=== PATIENT | male | born 1955 | race African-American/Black ===

== ENCOUNTER 2018-09-17 07:03 | Inpatient (IN) | payer MEDICAID ==
[~2018-09-17] VITALS: Ht 188 cm; Wt 137.9 kg
[2018-09-17] MEDS ORDERED: EPINEPHRINE 1:1000 1 MG/ML AMP ONE (08:26)
[2018-09-17] MEDS ORDERED: BUPIVACAINE/EPINEPH/PF 0.25%/0.0005 10ML ONE (08:26)
[2018-09-17] MEDS ORDERED: BACITRACIN 50,000 UNITS/VIAL ONE ×2 (08:26→12:39)
[2018-09-17] MEDS ORDERED: NORMAL SALINE 0.9% 10 ML SYR ONE (08:26)
[2018-09-17] MEDS ORDERED: METHYLENE BLUE 50 MG/10 ML AMP IV ONE (08:26)
[2018-09-17] MEDS ORDERED: MORPHINE SULFATE/PF 1MG/ML 10ML AMP ONE (08:30)
[2018-09-17] MEDS ORDERED: GENTAMICIN SULF 40MG/ML 2ML VIAL ONE (08:31)
[2018-09-17 08:51] LABS: BASOPHILS % 1.1 % (0.0-2.0); EOSINOPHILS % 3.4 % (0.0-5.0); HEMATOCRIT. 45.7 % (42.0-52.0); HEMOGLOBIN. 15.3 g/dL (14.0-18.0); LYMPHOCYTES % 32.9 % (20.0-50.0); MEAN CORPUSCULAR HEMOGLOBIN 26.5 pg (28.0-32.0); MEAN CORPUSCULAR VOLUME 79.2 fL (80.0-94.0); MEAN PLATELET VOLUME 8.1 fl (7.4-10.4); NEUTROPHILS % 55.6 % (40.0-76.0); PLATELET 271 x1000/uL (130-400); RED BLOOD CELL COUNT 5.77 mill/uL (4.7-6.1); RED CELL DISTRIBUTION WIDTH 14.1 % (11.6-14.6)
[2018-09-17 08:53] LABS: CHLORIDE 105 mEq/L (98-107)
[2018-09-17 08:56] LABS: PARTIAL THROMBOPLASTIN TIME 28.1 sec (23.4-31.0); PROTHROMBIN TIME 10.3 sec (9.1-11.1)
[2018-09-17 08:59] LABS: CLARITY URINE CLEAR (CLEAR); COLOR URINE YELLOW (YELLOW); KETONES URINE NEGATIVE (NEGATIVE); LEUKOCYTE ESTERASE URINE NEGATIVE (NEGATIVE); NITRITE URINE NEGATIVE (NEGATIVE); OCCULT BLOOD URINE NEGATIVE (NEGATIVE); PROTEIN URINE NEGATIVE (NEGATIVE); SPECIFIC GRAVITY URINE 1.011 (1.005-1.030); UROBILINOGEN URINE 0.2 E.U./dL (0.2-1.0)
[2018-09-17] MEDS ORDERED: BUPIVACAINE HCL/PF 0.5% (5MG/ML) 10ML ONE ×2 (09:17→09:18)
[2018-09-17] MEDS ORDERED: FENTANYL CITRATE/PF 50MCG/ML 2ML VIAL ONE ×3 (09:27→12:04)
[2018-09-17] MEDS ORDERED: PROPOFOL 200MG/20ML VIAL IV ONE (09:27)
[2018-09-17] MEDS ORDERED: MIDAZOLAM HCL 2 MG/2 ML VIAL ONE (09:33)
[2018-09-17] MEDS ORDERED: ONDANSETRON HCL 4MG/2ML INJ IV PRN ×2 (09:45→13:30)
[2018-09-17] MEDS ORDERED: MAGNESIUM HYDROXIDE 400MG/5ML 30ML UDC PO PRN (09:45)
[2018-09-17] MEDS ORDERED: ACETAMINOPHEN 325MG TABLET PO PRN (09:45)
[2018-09-17] MEDS ORDERED: SIMV20TA6 PO (10:09)
[2018-09-17] MEDS ORDERED: AMLO10TA80 PO (10:09)
[2018-09-17] MEDS ORDERED: POTA99TA4 PO (10:09)
[2018-09-17] MEDS ORDERED: FURO-151 PO (10:09)
[2018-09-17] MEDS ORDERED: ASPI-1159 PO (10:09)
[2018-09-17] MEDS ORDERED: LIDOCAINE HCL/PF 1% 10 MG/ML 5ML VIAL ONE (10:45)
[2018-09-17] MEDS ORDERED: CEFAZOLIN SODIUM 1000MG/VIAL ONE (10:45)
[2018-09-17] MEDS ORDERED: DEXAMETHASONE 4MG/ML 1ML VIAL ONE (10:46)
[2018-09-17] MEDS ORDERED: VANCOMYCIN HCL 500 MG/VIAL ONE ×2 (11:08→11:37)
[2018-09-17] MEDS ORDERED: TRANEXAMIC ACID 1,000 MG in SODIUM CHLORIDE 0.9% 100 ML IV NR (11:30)
[2018-09-17] MEDS ORDERED: SODIUM CHLORIDE 0.9% 1,000 ML IV ONE (13:20)
[2018-09-17] MEDS ORDERED: HYDROMORPHONE HCL/PF 2MG/ML CPJ IV PRN (13:30)
[2018-09-17] MEDS ORDERED: MEPERIDINE HCL/PF 25MG/ML CPJ IV PRN (13:30)
[2018-09-17] MEDS ORDERED: DIPHENHYDRAMINE 25MG CAPSULE PO PRN (14:15)
[2018-09-17 16:00] VITALS: BP 166/95
[2018-09-17 17:18] VITALS: BP 166/95
[2018-09-17] MEDS: CELECOXIB 200MG CAPSULE PO SCH (17:19)
[2018-09-17] MEDS: DOCUSATE SODIUM 100MG CAPSULE PO SCH (17:19)
[2018-09-17] MEDS: FERROUS SULFATE 325MG TABLET PO SCH (17:43)
[2018-09-17] MEDS: CEFAZOLIN 2,000 MG in DEXT 5% WATER 100 ML IV SCH (18:44)
[2018-09-17 20:00] VITALS: BP 153/96
[2018-09-17] MEDS ORDERED: ZOLPIDEM TARTRATE 5MG TABLET PO PRN (21:00)
[2018-09-18] VITALS: BP 154/94
[2018-09-18] MEDS: CEFAZOLIN 2,000 MG in DEXT 5% WATER 100 ML IV SCH (02:30)
[2018-09-18 04:00] VITALS: BP 128/71
[2018-09-18 06:43] LABS: BASOPHILS % 0.2 % (0.0-2.0); HEMATOCRIT. 38.7 % (42.0-52.0); LYMPHOCYTES % 14.8 % (20.0-50.0); MEAN CORPUSCULAR HEMOGLOBIN 26.5 pg (28.0-32.0); MEAN CORPUSCULAR VOLUME 79.3 fL (80.0-94.0); MEAN PLATELET VOLUME 8.4 fl (7.4-10.4); MONOCYTES % 8.4 % (2.0-8.0); NEUTROPHILS % 76.6 % (40.0-76.0); PLATELET 244 x1000/uL (130-400); RED BLOOD CELL COUNT 4.88 mill/uL (4.7-6.1); RED CELL DISTRIBUTION WIDTH 14.1 % (11.6-14.6)
[2018-09-18 07:23] LABS: CHLORIDE 102 mEq/L (98-107)
[2018-09-18 08:00] VITALS: BP 155/86
[2018-09-18] MEDS: DOCUSATE SODIUM 100MG CAPSULE PO SCH ×2 (08:18→17:57)
[2018-09-18] MEDS: FERROUS SULFATE 325MG TABLET PO SCH ×3 (08:19→17:57)
[2018-09-18] MEDS: CELECOXIB 200MG CAPSULE PO SCH ×2 (08:19→17:57)
[2018-09-18] MEDS: ENOXAPARIN 30MG/0.3ML SYR SUBCUT SCH ×2 (08:20→22:05)
[2018-09-18] MEDS: HYDROCODONE/ACETAMINOPHEN 10/325MG TABLET PO PRN ×2 (10:05→16:25)
[2018-09-18] MEDS: AMLODIPINE 10MG TABLET PO SCH (11:50)
[2018-09-18 12:00] VITALS: BP 135/70
[2018-09-18 16:00] VITALS: BP 123/87
[2018-09-18 20:00] VITALS: BP 140/97
[2018-09-19] VITALS: BP 133/80
[2018-09-19] MEDS: HYDROCODONE/ACETAMINOPHEN 10/325MG TABLET PO PRN ×2 (01:11→11:29)
[2018-09-19 04:00] VITALS: BP 135/96
[2018-09-19 08:00] VITALS: BP 143/96
[2018-09-19] MEDS: DOCUSATE SODIUM 100MG CAPSULE PO SCH (09:47)
[2018-09-19] MEDS: FERROUS SULFATE 325MG TABLET PO SCH (09:47)
[2018-09-19] MEDS: AMLODIPINE 10MG TABLET PO SCH (09:53)
[2018-09-19] MEDS: CELECOXIB 200MG CAPSULE PO SCH (09:53)
[2018-09-19] MEDS: ENOXAPARIN 30MG/0.3ML SYR SUBCUT SCH (09:54)
[2018-09-19 12:00] VITALS: BP 136/75
[2018-09-19 15:58] VITALS: BP 132/76
[2018-09-19 16:00] VITALS: BP 125/75
== END 2018-09-19 16:40 | disposition home health service (06) | DRG 302 ==
LOC: OR 07:03 → 6EST 07:04
PROVIDERS: ADMIT Internal Medicine; ATTEND Internal Medicine
PROC: 0SBD0ZZ Excision of Left Knee Joint, Open Approach (ICD-10-PCS; 2018-09-17)
PROC: 0SRD0J9 Replacement of Left Knee Joint with Synthetic Substitute, Cemented, Open Approach (ICD-10-PCS; principal; 2018-09-17 11:30)
DX: M17.0 Bilateral primary osteoarthritis of knee (principal); R71.0 Precipitous drop in hematocrit; E66.9 Obesity, unspecified; E78.5 Hyperlipidemia, unspecified; M21.862 Other specified acquired deformities of left lower leg; I10 Essential (primary) hypertension; G57.10 Meralgia paresthetica, unspecified lower limb; M65.9 Synovitis and tenosynovitis, unspecified; Z85.46 Personal history of malignant neoplasm of prostate; Z92.3 Personal history of irradiation; Z68.39 Body mass index [BMI] 39.0-39.9, adult
CPT/HCPCS: 36415; 71045; 73560; 80048; 86850; 86900; 88304; 88311; 97110; 97116; 97162; A4216; C1713; C1776; J0171; J0690; J1100; J1580; J1650; J2250; J2274; J2704; J3010; J3370; J3490; J7040; J7050; J7060; J7120; L1830; Q0163; Q9968

== ENCOUNTER 2019-11-25 05:18 | Inpatient (IN) | payer MEDICAID ==
[~2019-11-25] VITALS: Ht 188 cm; Wt 133.4 kg
[~2019-11-25 05:18] MED LIST: AMLO10TA80 PO; POTA99TA4 PO; SIMV-43 PO
[2019-11-25] MEDS: INSULIN LISPRO 100 UNITS/ML SUBCUT SCH (06:20)
[2019-11-25] MEDS: BLOOD SUGAR DIAGNOSTIC STRIP TEST SCH (06:20)
[2019-11-25 06:48] LABS: CLARITY URINE CLEAR (CLEAR); COLOR URINE YELLOW (YELLOW); KETONES URINE NEGATIVE (NEGATIVE); LEUKOCYTE ESTERASE URINE NEGATIVE (NEGATIVE); NITRITE URINE NEGATIVE (NEGATIVE); OCCULT BLOOD URINE NEGATIVE (NEGATIVE); PROTEIN URINE 1+ (NEGATIVE)
[2019-11-25] MEDS ORDERED: BUPIVACAINE HCL/EPINEPHRINE/PF 0.5%/0.0005 10ML ONE (07:16)
[2019-11-25] MEDS ORDERED: MORPHINE SULFATE/PF 1MG/ML 10ML AMP ONE (07:16)
[2019-11-25] MEDS ORDERED: METHYLENE BLUE 50 MG/10 ML AMP IV ONE (07:16)
[2019-11-25] MEDS ORDERED: GENTAMICIN SULF 40MG/ML 2ML VIAL ONE (07:16)
[2019-11-25] MEDS ORDERED: VANCOMYCIN HCL 1 GM/VIAL ONE (07:17)
[2019-11-25] MEDS ORDERED: EPINEPHRINE 1:1000 1 MG/ML AMP ONE (07:17)
[2019-11-25] MEDS ORDERED: BACITRACIN 15GM TUBE TOP ONE (07:17)
[2019-11-25] MEDS ORDERED: SKIN ADHESIVE 0.7 GM EA TOP ONE ×2 (07:17→08:16)
[2019-11-25] MEDS ORDERED: NORMAL SALINE 0.9% 10 ML SYR ONE (07:17)
[2019-11-25] MEDS ORDERED: BACITRACIN 50,000 UNITS/VIAL ONE (07:17)
[2019-11-25] MEDS ORDERED: MIDAZOLAM HCL 2 MG/2 ML VIAL ONE (07:19)
[2019-11-25] MEDS ORDERED: PROPOFOL 200MG/20ML VIAL IV ONE (07:19)
[2019-11-25] MEDS ORDERED: FENTANYL CITRATE/PF 50MCG/ML 2ML VIAL ONE (07:19)
[2019-11-25] MEDS ORDERED: PROPOFOL 10MG/ML 100ML 0 ML IV ONE (07:24)
[2019-11-25] MEDS ORDERED: ROPIVACAINE HCL 10MG/ML 20 ML VIAL EPI ONE (07:24)
[2019-11-25] MEDS ORDERED: BUPIVACAINE HCL/DEXTROSE/PF 0.75% 2ML AMP INJ ONE (07:24)
[2019-11-25] MEDS ORDERED: HYDROCODONE/ACETAMINOPHEN 10/325MG TABLET PO PRN (07:45)
[2019-11-25] MEDS ORDERED: TRANEXAMIC ACID 1,000 MG/10 ML IV ONE (07:45)
[2019-11-25] MEDS ORDERED: MAGNESIUM HYDROXIDE 400MG/5ML 30ML UDC PO PRN (07:45)
[2019-11-25] MEDS ORDERED: ONDANSETRON HCL 4MG/2ML INJ IV PRN ×2 (07:45→12:45)
[2019-11-25] MEDS ORDERED: ROCURONIUM BROMIDE 10MG/ML VIAL 5ML IV ONE (07:51)
[2019-11-25] MEDS ORDERED: TRANEXAMIC ACID 1,000 MG in SODIUM CHLORIDE 0.9% 100 ML IV NR (08:00)
[2019-11-25] MEDS ORDERED: SODIUM CHLORIDE 0.9% 10ML VIAL ONE (08:15)
[2019-11-25] MEDS ORDERED: CEFAZOLIN SODIUM 1000MG/VIAL ONE (08:15)
[2019-11-25] MEDS ORDERED: LIDOCAINE HCL/PF 1% 10 MG/ML 5ML VIAL ONE (08:15)
[2019-11-25] MEDS ORDERED: LACTATED RINGERS 1,000 ML IV SCH (08:30)
[2019-11-25] MEDS ORDERED: CHOL200059 PO (08:42)
[2019-11-25] MEDS ORDERED: ATOR20TA65 PO (08:42)
[2019-11-25] MEDS ORDERED: LOSA100T32 PO (08:42)
[2019-11-25] MEDS ORDERED: GLIP10TA10 PO (08:42)
[2019-11-25] MEDS ORDERED: ASPI-1160 PO (08:42)
[2019-11-25] MEDS: DOCUSATE SODIUM 100MG CAPSULE PO SCH ×2 (09:00→17:57)
[2019-11-25] MEDS ORDERED: KETOROLAC 30MG/ML VIAL ONE (11:51)
[2019-11-25] MEDS ORDERED: ONDANSETRON HCL 4MG/2ML INJ ONE (11:52)
[2019-11-25] MEDS ORDERED: HYDROMORPHONE HCL/PF 2MG/ML CPJ IV PRN (12:45)
[2019-11-25] MEDS ORDERED: FENTANYL CITRATE/PF 50MCG/ML 2ML VIAL IV PRN (12:45)
[2019-11-25] MEDS ORDERED: MEPERIDINE HCL/PF 25MG/ML CPJ IV PRN (12:45)
[2019-11-25] MEDS ORDERED: DIPHENHYDRAMINE INJ IV PRN (14:30)
[2019-11-25] MEDS ORDERED: NALOXONE INJ IV PRN (14:30)
[2019-11-25] MEDS ORDERED: ONDANSETRON INJ IV PRN (14:30)
[2019-11-25] MEDS ORDERED: HYDROMORPHONE PCA 10MG/50ML IV PRN (14:30)
[2019-11-25] MEDS ORDERED: DIPHENHYDRAMINE 50MG/ML VIAL IM PRN (16:45)
[2019-11-25 17:00] VITALS: BP 126/76
[2019-11-25] MEDS ORDERED: ACETAMINOPHEN 325MG TABLET PO PRN (17:00)
[2019-11-25] MEDS: LOSARTAN POTASSIUM 100 MG TABLET PO SCH (17:57)
[2019-11-25] MEDS: AMLODIPINE 10MG TABLET PO SCH (17:58)
[2019-11-25] MEDS: CELECOXIB 200MG CAPSULE PO SCH ×3 (17:58→20:01)
[2019-11-25] MEDS: GLIPIZIDE 10MG TABLET PO SCH (18:11)
[2019-11-25 19:57] VITALS: BP 111/72
[2019-11-25] MEDS: ATORVASTATIN CALCIUM 20MG TABLET PO SCH (20:01)
[2019-11-25] MEDS: CEFAZOLIN 2,000 MG in DEXT 5% WATER 100 ML IV SCH (20:02)
[2019-11-25] MEDS ORDERED: ZOLPIDEM TARTRATE 5MG TABLET PO PRN (21:00)
[2019-11-25] MEDS ORDERED: DEXTROSE 50% WATER 50ML SYRINGE IV PRN (23:30)
[2019-11-26] VITALS: BP 107/51
[2019-11-26 04:00] VITALS: BP 122/68
[2019-11-26] MEDS: CEFAZOLIN 2,000 MG in DEXT 5% WATER 100 ML IV SCH (04:57)
[2019-11-26 06:34] LABS: BASOPHILS % 0.2 % (0.0-2.0); EOSINOPHILS % 1.5 % (0.0-5.0); HEMATOCRIT. 36.1 % (42.0-52.0); HEMOGLOBIN. 11.9 g/dL (14.0-18.0); LYMPHOCYTES % 24.8 % (20.0-50.0); MEAN CORPUSCULAR HEMOGLOBIN 26.4 pg (28.0-32.0); MEAN PLATELET VOLUME 8.3 fl (7.4-10.4); MONOCYTES % 12.2 % (2.0-8.0); NEUTROPHILS % 61.3 % (40.0-76.0); PLATELET 237 x1000/uL (130-400); RED BLOOD CELL COUNT 4.51 mill/uL (4.7-6.1); RED CELL DISTRIBUTION WIDTH 14.1 % (11.6-14.6)
[2019-11-26] MEDS: GLIPIZIDE 10MG TABLET PO SCH (06:37)
[2019-11-26] MEDS: BLOOD SUGAR DIAGNOSTIC STRIP TEST SCH ×4 (07:36→21:45)
[2019-11-26] MEDS: INSULIN LISPRO 100 UNITS/ML SUBCUT SCH ×4 (07:50→21:00)
[2019-11-26 08:02] VITALS: BP 147/87
[2019-11-26 08:03] LABS: CHLORIDE 107 mEq/L (98-107)
[2019-11-26] MEDS: CELECOXIB 200MG CAPSULE PO SCH ×2 (08:51→20:37)
[2019-11-26] MEDS: AMLODIPINE 10MG TABLET PO SCH (08:51)
[2019-11-26] MEDS: DOCUSATE SODIUM 100MG CAPSULE PO SCH ×2 (09:00→17:11)
[2019-11-26] MEDS ORDERED: ENOXAPARIN 30MG/0.3ML SYR SUBCUT SCH (09:00)
[2019-11-26] MEDS ORDERED: INFLUENZA VIRUS VACCINE(AFLURIA) 0.5ML SYR IM ONE (09:00)
[2019-11-26 12:00] VITALS: BP 153/81
[2019-11-26 16:00] VITALS: BP_SYST 134; BP_SYST 153; BP_DIAS 79; BP_DIAS 81
[2019-11-26] MEDS: LOSARTAN POTASSIUM 100 MG TABLET PO SCH (17:11)
[2019-11-26 20:00] VITALS: BP 139/69
[2019-11-26] MEDS: ATORVASTATIN CALCIUM 20MG TABLET PO SCH (20:37)
[2019-11-26] MEDS: ENOXAPARIN 40MG/0.4ML SYR SUBCUT SCH (20:38)
[2019-11-26] MEDS: HYDROCODONE/ACETAMINOPHEN 10/325MG TABLET PO PRN (21:57)
[2019-11-27] VITALS: BP 126/66
[2019-11-27 04:00] VITALS: BP 137/80
[2019-11-27] MEDS: GLIPIZIDE 10MG TABLET PO SCH (06:28)
[2019-11-27 06:44] LABS: BASOPHILS % 0.2 % (0.0-2.0); EOSINOPHILS % 1.5 % (0.0-5.0); HEMOGLOBIN. 11.3 g/dL (14.0-18.0); LYMPHOCYTES % 24.4 % (20.0-50.0); MEAN CORPUSCULAR VOLUME 80.3 fL (80.0-94.0); MEAN PLATELET VOLUME 8.5 fl (7.4-10.4); NEUTROPHILS % 63.9 % (40.0-76.0); PLATELET 236 x1000/uL (130-400); RED BLOOD CELL COUNT 4.36 mill/uL (4.7-6.1)
[2019-11-27] MEDS: BLOOD SUGAR DIAGNOSTIC STRIP TEST SCH ×2 (07:26→12:20)
[2019-11-27 07:55] LABS: CHLORIDE 106 mEq/L (98-107)
[2019-11-27 08:00] VITALS: BP 140/71
[2019-11-27] MEDS: DOCUSATE SODIUM 100MG CAPSULE PO SCH (08:49)
[2019-11-27] MEDS: CELECOXIB 200MG CAPSULE PO SCH (08:49)
[2019-11-27] MEDS: ENOXAPARIN 40MG/0.4ML SYR SUBCUT SCH (08:50)
[2019-11-27] MEDS: AMLODIPINE 10MG TABLET PO SCH (08:53)
[2019-11-27] MEDS: INSULIN LISPRO 100 UNITS/ML SUBCUT SCH ×2 (09:12→12:27)
[2019-11-27] MEDS: HYDROCODONE/ACETAMINOPHEN 10/325MG TABLET PO PRN (09:13)
[2019-11-27 11:22] VITALS: BP 135/75
[2019-11-27 12:00] VITALS: BP 126/60
== END 2019-11-27 12:45 | disposition home health service (06) | DRG 302 ==
LOC: OR 05:18 → 6EST 05:19
PROVIDERS: ADMIT Orthopaedic Surgery; ATTEND Orthopaedic Surgery
PROC: 0SRC0J9 Replacement of Right Knee Joint with Synthetic Substitute, Cemented, Open Approach (ICD-10-PCS; principal; 2019-11-25)
DX: M17.11 Unilateral primary osteoarthritis, right knee (principal); E11.9 Type 2 diabetes mellitus without complications; E66.9 Obesity, unspecified; E78.5 Hyperlipidemia, unspecified; I10 Essential (primary) hypertension; G89.29 Other chronic pain; M21.161 Varus deformity, not elsewhere classified, right knee; M25.761 Osteophyte, right knee; M65.88 Other synovitis and tenosynovitis, other site; M24.561 Contracture, right knee; Z96.652 Presence of left artificial knee joint; K59.00 Constipation, unspecified; I45.10 Unspecified right bundle-branch block; Z79.899 Other long term (current) drug therapy; Z68.37 Body mass index [BMI] 37.0-37.9, adult; Z79.82 Long term (current) use of aspirin; Z79.84 Long term (current) use of oral hypoglycemic drugs
CPT/HCPCS: 36415; 73560; 80048; 81003; 82962; 85025; 86850; 86900; 88305; 88311; 93005; 97110; 97116; 97162; 97166; C1713; C1776; J0171; J0690; J1170; J1580; J1650; J1815; J1885; J2250; J2274; J2405; J2704; J2795; J3010; J3370; J3490; J7050; J7060; L1830; Q9968